=== PATIENT | male | born 1970 | race Two or more races ===

== ENCOUNTER 2022-01-10 10:06 | Emergency (ER) | payer SELFPAY ==
[~2022-01-10] VITALS: Ht 177.8 cm; Wt 158.8 kg
[2022-01-10 10:59] VITALS: BP 126/69
[2022-01-10] MEDS ORDERED: CEPH500C PO (11:06)
[2022-01-10] MEDS ORDERED: IBUP800T27 PO (11:06)
[2022-01-10] MEDS ORDERED: KETOROLAC TROMETH 60MG/2ML VIAL IM ONE (11:15)
[2022-01-10] MEDS ORDERED: cefTRIAXone SOD 1,000 MG VL IM ONE (11:15)
[2022-01-11] MEDS ORDERED: CLIN300C8 PO (04:54)
== END 2022-01-10 11:27 | disposition home or self-care (01) ==
LOC: ER 10:06
DX: S90.822A Blister (nonthermal), left foot, initial encounter (principal); S90.821A Blister (nonthermal), right foot, initial encounter; F17.210 Nicotine dependence, cigarettes, uncomplicated; Z59.00 Homelessness unspecified; X58.XXXA Exposure to other specified factors, initial encounter; Y93.89 Activity, other specified; Y92.89 Other specified places as the place of occurrence of the external cause; Y99.8 Other external cause status
CPT/HCPCS: 96372; 99284; J0696; J1885

== ENCOUNTER 2022-01-11 00:55 | Emergency (ER) | payer MEDICAID, OTHER ==
[~2022-01-11] VITALS: Ht 177.8 cm; Wt 158.8 kg
[2022-01-11 00:55] VITALS: BP 134/77
[~2022-01-11 00:55] MED LIST: CEPH500C PO; IBUP800T27 PO
[2022-01-11] MEDS ORDERED: CLIN300C8 PO (04:54)
[2022-01-11] MEDS ORDERED: CLINDAMYCIN HCL 150 MG CAP PO ONE (05:00)
== END 2022-01-11 06:13 | disposition home or self-care (01) ==
LOC: ER 01:03
DX: S90.822A Blister (nonthermal), left foot, initial encounter (principal); S90.821A Blister (nonthermal), right foot, initial encounter; F17.210 Nicotine dependence, cigarettes, uncomplicated; Z59.00 Homelessness unspecified; Z79.1 Long term (current) use of non-steroidal anti-inflammatories (NSAID); Z79.2 Long term (current) use of antibiotics; Z79.899 Other long term (current) drug therapy; X58.XXXA Exposure to other specified factors, initial encounter; Y93.89 Activity, other specified; Y92.89 Other specified places as the place of occurrence of the external cause; Y99.8 Other external cause status

== ENCOUNTER 2022-01-12 18:24 | Emergency (ER) | payer MEDICAID ==
[~2022-01-12] VITALS: Ht 177.8 cm; Wt 136.1 kg
[~2022-01-12 18:24] MED LIST changes: +CLIN300C8 PO
[2022-01-12 18:42] VITALS: BP 130/83
[2022-01-12] MEDS ORDERED: SODIUM CHLORIDE 0.9% 3,000 ML IV ONE (18:45)
[2022-01-13] MEDS ORDERED: CLIN150C PO (03:15)
== END 2022-01-12 23:07 | disposition left against medical advice (07) ==
LOC: EDBD 18:24 → ER 18:24
DX: F10.129 Alcohol abuse with intoxication, unspecified (principal); Z79.1 Long term (current) use of non-steroidal anti-inflammatories (NSAID); Z79.2 Long term (current) use of antibiotics; Z79.899 Other long term (current) drug therapy; Y90.9 Presence of alcohol in blood, level not specified
CPT/HCPCS: 96360; 96361; 99283; J7030

== ENCOUNTER 2022-01-12 23:47 | Emergency (ER) | payer MEDICAID ==
[~2022-01-12] VITALS: Ht 177.8 cm; Wt 158.8 kg
[2022-01-13] MEDS ORDERED: CLIN150C PO (03:15)
[2022-01-13 06:35] VITALS: BP 158/88
== END 2022-01-13 06:50 | disposition home or self-care (01) ==
LOC: ER 23:49
DX: L03.115 Cellulitis of right lower limb (principal); L03.116 Cellulitis of left lower limb; L02.612 Cutaneous abscess of left foot; L02.611 Cutaneous abscess of right foot; Z79.2 Long term (current) use of antibiotics; Z79.1 Long term (current) use of non-steroidal anti-inflammatories (NSAID); Z79.899 Other long term (current) drug therapy; Z59.00 Homelessness unspecified
CPT/HCPCS: 73620

== ENCOUNTER 2022-01-14 00:47 | Emergency (ER) | payer MEDICAID ==
[~2022-01-14] VITALS: Ht 188 cm; Wt 158.8 kg
[~2022-01-14 00:47] MED LIST changes: +CLIN150C PO
[2022-01-14 03:10] VITALS: BP 103/54
== END 2022-01-14 03:17 | disposition home or self-care (01) ==
LOC: EDBD 00:47 → ER 00:49
DX: F10.129 Alcohol abuse with intoxication, unspecified (principal); E11.9 Type 2 diabetes mellitus without complications; Z79.1 Long term (current) use of non-steroidal anti-inflammatories (NSAID); Z79.2 Long term (current) use of antibiotics; Z79.899 Other long term (current) drug therapy; Y90.9 Presence of alcohol in blood, level not specified
CPT/HCPCS: 82962

== ENCOUNTER 2022-01-14 13:16 | Emergency (ER) | payer MEDICAID ==
[~2022-01-14] VITALS: Ht 177.8 cm; Wt 147.4 kg
[2022-01-14] MEDS ORDERED: THIAMINE 100mg/ml INJ (200mg/2ml VIAL) IV ONE (13:30)
[2022-01-14 14:26] LABS: Amphetamine Screen, Urine NEGATIVE (NEGATIVE); Barbiturate Scree,Urine NEGATIVE (NEGATIVE); Benzodiazephine Screen, Urine NEGATIVE (NEGATIVE); Cannabinoid Screen, Urine NEGATIVE (NEGATIVE); Cocaine Screen, Urine NEGATIVE (NEGATIVE); Opiate Scree,Urine NEGATIVE (NEGATIVE); Phencyclidine Screen, Urine NEGATIVE (NEGATIVE)
[2022-01-14 14:48] LABS: Albumin 2.7 g/dL (3.4-5.0); Anion Gap 5 (5-15); Blood Urea Nitrogen 12 mg/dL (7-18); Calcium 7.8 mg/dL (8.5-10.1); Carbon Dioxide 26 mmol/L (21-32); Chloride 115 mmol/L (98-107); Potassium 3.1 mmol/L (3.5-5.1); Sodium 146 mmol/L (136-145)
[2022-01-14 14:53] LABS: Alanine Aminotransferase 97 U/L (16-61); Alkaline Phosphatase 101 U/L (45-117); Aspartate Aminotransferase 77 U/L (15-37); Bilirubin, Total 0.2 mg/dL (0.2-1.0); GFR African American 183 mL/min; GFR Non-African American 152 mL/min; Glucose 106 mg/dL (74-106); Total Protein 5.8 g/dL (6.4-8.2)
[2022-01-14 14:58] LABS: Basophils # (auto) 0 10 ^3/uL (0-0.2); Basophils % (auto) 0.6 % (0.0-2.0); Eosinophils # (auto) 0 10 ^3/uL (0-0.8); Eosinophils % (auto) 0.7 % (0.0-7.0); Hematocrit 34.3 % (41.0-53.0); Hemoglobin 11.2 g/dL (13.5-17.5); Lymphocytes # (auto) 1.9 10 ^3/uL (0.4-5.4); Lymphocytes % (auto) 27.6 % (10.0-50.0); Mean Corpuscular Hemoglobin 29.4 pg (28.0-32.0); Mean Corpuscular Hgb Conc. 32.8 g/dL (32.0-36.0); Mean Corpuscular Volume 89.7 fL (80.0-100.0); Monocytes # (auto) 0.5 10 ^3/uL (0-1.3); Monocytes % (auto) 7.6 % (0.0-12.0); Neutrophils # (auto) 4.5 10 ^3/uL (1.6-8.6); Neutrophils % (auto) 63.5 % (37.0-80.0); Red Blood Cells 3.82 10^6/uL (4.5-5.90); Red Cell Distribution Width 17.2 % (11.8-14.3); White Blood Cell 7.1 10^3/uL (4.4-10.8)
[2022-01-14] MEDS ORDERED: SODIUM CHLORIDE 0.9% 1,000 ML IV ONE ×2 (17:00)
[2022-01-14 20:00] VITALS: BP 102/61
== END 2022-01-15 06:11 | disposition home or self-care (01) ==
LOC: EDBD 13:16 → ER 13:37
DX: F10.129 Alcohol abuse with intoxication, unspecified (principal); E11.9 Type 2 diabetes mellitus without complications; Z59.00 Homelessness unspecified; Z79.2 Long term (current) use of antibiotics; Z79.1 Long term (current) use of non-steroidal anti-inflammatories (NSAID); Z79.899 Other long term (current) drug therapy; Y90.7 Blood alcohol level of 200-239 mg/100 ml
CPT/HCPCS: 36415; 80053; 80307; 80320; 85025; 96361; 96374; 99285; J3411; J7030

== ENCOUNTER 2022-01-15 21:33 | Emergency (ER) | payer MEDICAID, OTHER ==
[~2022-01-15] VITALS: Ht 182.9 cm; Wt 158.8 kg
[2022-01-16 01:10] LABS: Basophils # (auto) 0.1 10 ^3/uL (0-0.2); Basophils % (auto) 1.3 % (0.0-2.0); Eosinophils # (auto) 0.2 10 ^3/uL (0-0.8); Eosinophils % (auto) 3.4 % (0.0-7.0); Hematocrit 34.6 % (41.0-53.0); Hemoglobin 11.8 g/dL (13.5-17.5); Lymphocytes # (auto) 2.4 10 ^3/uL (0.4-5.4); Mean Corpuscular Hemoglobin 30.5 pg (28.0-32.0); Mean Corpuscular Hgb Conc. 34.1 g/dL (32.0-36.0); Mean Corpuscular Volume 89.3 fL (80.0-100.0); Monocytes # (auto) 0.4 10 ^3/uL (0-1.3); Monocytes % (auto) 7.7 % (0.0-12.0); Neutrophils # (auto) 2.1 10 ^3/uL (1.6-8.6); Neutrophils % (auto) 40.6 % (37.0-80.0); Nucleated Red Blood Cells % 0.1 %; Red Blood Cells 3.88 10^6/uL (4.5-5.90); Red Cell Distribution Width 17.2 % (11.8-14.3); White Blood Cell 5.1 10^3/uL (4.4-10.8)
[2022-01-16 01:31] LABS: Acetaminophen < 2.0 ug/mL (10-30); Albumin 2.7 g/dL (3.4-5.0); BUN/Creatinine Ratio 24.1; Calcium 8.1 mg/dL (8.5-10.1); Magnesium 2.1 mg/dL (1.6-2.6); Potassium 3.4 mmol/L (3.5-5.1)
[2022-01-16 01:34] LABS: Bilirubin, Total 0.2 mg/dL (0.2-1.0); Total Protein 5.8 g/dL (6.4-8.2)
[2022-01-16 04:13] VITALS: BP 134/76
== END 2022-01-16 04:06 | disposition home or self-care (01) ==
LOC: EDBD 21:33 → ER 21:36 → EDBD 21:36 → EDUNIT# 21:36 → ER 01-16 04:06
DX: F10.10 Alcohol abuse, uncomplicated (principal)
CPT/HCPCS: 36415; 80053; 80320; 80329; 83735; 85025

== ENCOUNTER 2022-01-16 19:08 | Emergency (ER) | payer MEDICAID ==
[~2022-01-16] VITALS: Ht 182.9 cm; Wt 145.1 kg
[2022-01-16 19:10] VITALS: BP 149/73
== END 2022-01-16 21:00 | disposition home or self-care (01) ==
LOC: EDBD 19:08 → ER 19:08 → EDUNIT# 19:08 → ER 21:00
DX: R60.1 Generalized edema (principal); Z59.00 Homelessness unspecified

== ENCOUNTER 2022-01-17 00:34 | Emergency (ER) | payer MEDICAID ==
[~2022-01-17] VITALS: Ht 175.3 cm; Wt 136.1 kg
[2022-01-17 01:01] VITALS: BP 132/74
[2022-01-17] MEDS ORDERED: ACETAMINOPHEN 500 MG TAB PO ONE (01:15)
== END 2022-01-17 01:00 | disposition home or self-care (01) ==
LOC: EDBD 00:34 → ER 00:34
DX: M54.9 Dorsalgia, unspecified (principal); F10.10 Alcohol abuse, uncomplicated; M79.18 Myalgia, other site; Z59.00 Homelessness unspecified